=== PATIENT | female | born 2000 | race African-American/Black ===

== ENCOUNTER 2020-04-30 22:23 | Emergency (ER) | payer MEDICAID ==
[~2020-04-30] VITALS: Ht 177.8 cm; Wt 68.0 kg
--- NOTE | 2020-04-30 22:46 | NUR ---
BRITTANY WALKED IN TO ER. TO ER BED 12. AAOX4. NOT IN RESP DISTRESS. AMBULATORY ON STEADY GAIT. CAME IN SUICIDAL IDEATION W/ PLAN TO HANG HERSELF. PER PT, SHE HAS BEEN FEELING DOWN AND HAVING A HARD TIME ON THE STREET BECAUSE SHE IS RECENTLY HOMELESS. PT DENIES HOMICIDAL IDEATION. DENIES BOTH VISUAL AND AUDITIORY HALLUCINATIONS. TO STRIPPED OF CLOTHING, GOWNED UP, VISUAL INSPECTION FOR ANYTHING THAT CAN CAUSE HARM, WIRES FROM MACHINES ARE REMOVED FROM PT'S ENVIRONMENT AND 1:1 SITTER AT BEDSIDE. WAS AT THE BEDSIDE FOR EVAL. ORDERS RECEIVED, NOTED AND CARRIED OUT.
[2020-04-30 22:56] LABS: BASOPHILS # (AUTO) 0.1 /CMM (0.0-0.2); BASOPHILS % (AUTO) 1.3 % (0.0-2.0); EOSINOPHILS % (AUTO) 6.5 % (0.0-6.0); HEMATOCRIT 33 % (33-45); HEMOGLOBIN 10.6 g/dL (11.5-14.8); LYMPHOCYTES % (AUTO) 37.7 % (20.0-44.0); MEAN CORPUSCULAR HGB CONC 33 g/dl (31.0-36.0); MEAN CORPUSCULAR VOLUME 87 fL (82-100); MONOCYTES % (AUTO) 9.1 % (2.0-12.0); NEUTROPHILS # (AUTO) 4.8 /CMM (1.8-8.9); NEUTROPHILS % (AUTO) 45.4 % (43.0-81.0); PLATELET COUNT (AUTO) 229 /CMM (150-450); RED BLOOD CELL COUNT(AUTO) 3.78 MIL/uL (4.0-5.2); WHITE BLOOD COUNT (AUTO) 10.6 K/uL (4.3-11.0)
[2020-04-30 23:05] LABS: CALCIUM, SERUM 8.9 mg/dL (8.5-10.1); CREATININE 0.9 mg/dL (0.6-1.3); POTASSIUM 3.5 mmol/L (3.5-5.1)
[2020-04-30 23:10] LABS: ALBUMIN 3.6 g/dL (3.4-5.0); BILIRUBIN,DIRECT 0.1 mg/dL (0.0-0.2); BILIRUBIN,TOTAL 0.2 mg/dL (0.2-1.0); TOTAL PROTEIN, SERUM 6.8 g/dL (6.4-8.2)
[2020-04-30 23:15] LABS: APPEARANCE,URINE Clear (CLEAR); BILIRUBIN,URINE SMALL (NEGATIVE); BLOOD, URINE Negative Ery/uL (NEGATIVE); COLOR,URINE Yellow (YELLOW); KETONES,URINE 15 (NEGATIVE); LEUKOCYTE ESTERASE ,URINE Negative (NEGATIVE); NITRITE, URINE Negative (NEGATIVE); PROTEIN,URINE Trace mg/dl (NEGATIVE); UGLUCOSE Negative (NEGATIVE); UROBILINOGEN,URINE 0.2 EU/dL (0.2)
[2020-04-30 23:16] LABS: SALICYLATE 2.5 mg/dL (2.8-20.0)
[2020-05-01 00:03] LABS: BACTERIA,URINE Few /HPF (None Seen); CALCIUM OXALATE CRYSTALS,UR Moderate /HPF (None Seen); MUCUS,URINE Many /LPF (None Seen); RBC,URINE 0-2 /HPF (0-2); SQUAMOUS EPITHELIAL CELL,UR Few /HPF (None Seen)
--- NOTE | 2020-05-01 00:49 | NUR ---
PT IS ON BED SLEEPING. NAD NOTED.
--- NOTE | 2020-05-01 05:05 | NUR ---
CLINICAL FAXED TO [facility] FOR VOLUNTARY PSYCH ADMISSION.
--- NOTE | 2020-05-01 05:58 | NUR ---
PT RESTING COMFORTABLY IN BED. VSS. NO AUCTE DISTRESS NOTED. SITTER AT BEDSIDE FOR SAFETY
--- NOTE | 2020-05-01 06:57 | NUR ---
SPOKE W/ KAI FROM [facility], WILL VERIFY WITH THEIR SHOWCASE MAKER IF COVID TESTING IS NEEDED. KAI MADE AWARE THAT PT DOESNT ENDORSE ANY SYMPTOMS
--- NOTE | 2020-05-01 07:06 | NUR ---
114/58 82 97percent temp 98.2
--- NOTE | 2020-05-01 07:32 | NUR ---
Assumed care per report vitals normal ,non distress continue to monitor
--- NOTE | 2020-05-01 08:40 | NUR ---
FOOD TRAY PROVIDED.
--- NOTE | 2020-05-01 10:39 | NUR ---
CALLED [facility] [phone] STILL NO BEDS. PLEASE CHECK BACK AFTER 1453
--- NOTE | 2020-05-01 16:04 | NUR ---
SPOKED TO NEIL OF [facility]. STILL NO BEDS AVAILABLE. WILL CALL BACK FOR UPDATE.
--- NOTE | 2020-05-01 17:19 | NUR ---
SPOKED TO NEIL OF [facility]. NEED TEST.
--- NOTE | 2020-05-01 17:34 | NUR ---
PT WAS ASKED TO GIVE URINE SAMPLE FOR TEST [employer] SUPERVISOR TO ACCEPTANCE AT [facility]. PT STATED "I AM BIRN BIOLOGICALLY MALE." PT WAS ASKED IF SHE STILL AHVE MALE ORGANS AND ANSWERED "YES". MADE AWARE
--- NOTE | 2020-05-01 17:45 | NUR ---
SPOKED TO NEIL [facility] WILL CALL BACK FOR A MALE PRIVATE BED.
--- NOTE | 2020-05-01 19:09 | NUR ---
Patient awake alert no hallucination no agiation follows comand awaiting for bed
--- NOTE | 2020-05-01 21:56 | NUR ---
PT AMBULATORY TO THE BATHROOM. PT AAOX4 NOACUTE DISTRESS NOTED, RESP EVEN AND UNLABORED. PT VERBALIZE FEELING BETTER AND DENIES SI/HI AT THIS TIME. WILL CONTINUE TO MONITOR PT CLOSELY.
--- NOTE | 2020-05-02 00:03 | NUR ---
PT ASLEEP, NO ACUTE DISTRESS NOTED, RESP EVEN AND UNLABORED. CALL LIGHT WITHIN REACH. WILL CONTINUE TO MONITOR PT CLOSELY.
--- NOTE | 2020-05-02 02:53 | NUR ---
PT CALLED REQUESTING TO LEAVE. KENN SANTOS MADE AWARE. PT DENIES SI/HI AT THIS TIME.
--- NOTE | 2020-05-02 03:07 | NUR ---
PT INSISTING TO LEAVE ER. ER MADE AWARE. PT REFUSING TO WAIT FOR D/C PAPERS. ALL BELONGINGS RETURNED BACK TO PT. PT LEFT ER AMBULATORY WITH STEADY GAIT NOTED.
--- NOTE | 2020-05-02 03:07 | NUR ---
PT REFUSE TO SIGN HOMELESS DISCHARGE PAPERS.
[2020-05-02 03:09] VITALS: BP 132/64
== END 2020-05-02 03:13 | disposition home or self-care (01) ==
LOC: ER 22:23
DX: R45.851 Suicidal ideations (principal); F19.10 Other psychoactive substance abuse, uncomplicated; F31.9 Bipolar disorder, unspecified; Z60.2 Problems related to living alone
CPT/HCPCS: 36415; 80048; 80076; 80305; 80307; 80329; 81001; 84703; 85025; 87086; 99285; G0480; 81000-TC